=== PATIENT | female | born 1985 | race Caucasian/White ===

== ENCOUNTER 2021-02-14 16:35 | Emergency (ER) | payer OTHER, SELFPAY ==
[2021-02-14 16:45] VITALS: BP 126/85; PULSE 102; RESP 18; TEMP 36.7; O2SAT 99; BMI 20.9
[2021-02-14 17:06] LABS: Glucose Urine UA NEG (NEG); Leukocyte Esterase Urine 1+ (NEG); Nitrite Urine NEG (NEG); UACC Culture Trigger YES; Urine Blood 1+ (NEG); Urine Ketones NEG (NEG); Urine Protein TRACE MG/DL (NEG-TRACE)
[2021-02-14 17:39] LABS: Appearance Urine HAZY; Color Urine YELLOW
[2021-02-14 18:01] LABS: Bacteria Urine 2+ /LPF; Squamous Epithelial Cell Urine 1+ /LPF
[2021-02-14 19:13] VITALS: BP 126/63; PULSE 98; RESP 18; TEMP 37.4; O2SAT 98
--- NOTE | 2021-02-14 21:33 | ED.FEMALEGU ---
HPI - Female Genitourinary General Chief complaint: Urogenital-Female Stated complaint: ?uti Time Seen by Provider: 02/14/21 21:33 Source: patient Mode of arrival: ambulatory Limitations: no limitations History of Present Illness HPI Narrative: Patient's history of recurrent UTI been feeling weak tired for last 3 days today noticed difficulty in urination with cloudy urine and strong order and left flank pain went to urgent care center urine shows UTI test was negative patient denies any nausea or vomiting complaining of mild headache no fever or chills in the past patient had sepsis because of UTI and just finished antibiotics last month for UTI lately she is getting UTI almost every month for the last 4 months Related Data Previous Rx's Medication Instructions Recorded ciprofloxacin HCl [Cipro] 500 mg PO BID #14 tab 02/14/21 Allergies Allergy/AdvReac Type Severity Reaction Status Date / Time Penicillins Allergy Mild THROAT Unverified 08/02/20 15:38 SWELLS penicillin Allergy Unknown Uncoded 10/19/19 00:00 Review of Systems Review of Systems: Constitutional : No Weight loss, No Fever, No Chills ENT/Mouth : No sore throat, No Rhinorrhea Eyes: No Eye Pain, No Swelling Cardiovascular : No Chest Pain, no palpitations Respiratory : No Cough, No Sputum, no shortness of breath Gastrointestinal : no Nausea, No Vomiting, No Diarrhea, No abdominal Pain, no black stools Genitourinary : + Dysuria, + Urinary Frequency Musculoskeletal : No joint pain, No Myalgias, No Joint Swelling Skin : No Skin Lesions, No rash Neuro : + Weakness, No Numbness, No Dizziness, + Headache Psych : No Anxiety/Panic, No Depression Heme/Lymph: No Bruising, No Lymphadenopathy Endocrine : No Polyuria, No Polydipsia All other systems reviewed and are negative [facility] Past Medical History Medical History Adrenal insufficiency UTI (urinary tract infection) Surgical History Previous back surgery Social History Social History Alcohol intake: never Smoking Status: Never smoker Use of substances other than those prescribed or required for medical reasons: No Advance Directives: No Advance Directives Information Provided: No Physical Exam Vital Signs: Vital Signs: Last Vital Signs Temp 98.3 F 02/14/21 21:56 Pulse 92 02/14/21 21:56 Resp 16 02/14/21 21:56 BP 121/85 02/14/21 21:56 Pulse Ox 99 02/14/21 21:56 Body Mass Index 20.9 Appearance: Alert. Oriented X3. No acute distress. Eyes: Pupils equal, round and reactive to light. ENT: Pharynx normal. Neck: Normal inspection. Neck supple. CVS: Normal heart rate and rhythm. Pulses normal. Respiratory: No respiratory distress. Breath sounds normal. Abdomen: Soft and nontender. Bowel sounds are present, no mass palpable, L CVA tenderness ++ Skin: Skin warm and dry. Normal skin color. Normal skin turgor. Extremities: No lower extremity edema. Neuro: Oriented X 3. No motor deficit. No sensory deficit. MDM - Female Genitourinary MDM Narrative Medical decision making narrative: Patient with UTI with history of sepsis in the past will check CBC count give IV Rocephin, at this time patient does not have any finding of sepsis Differential Diagnosis Differential diagnosis: Likely urinary tract infection Medical Records Attestation: I reviewed the patient's medical records. Lab Data Attestation: I reviewed the patient's lab results. Result diagrams: 02/14/21 22:01 02/14/21 22:01 Labs: Lab Results 02/14/21 02/14/21 02/14/21 Range/Units 16:44 22:01 22:01 WBC 13.3 H (4.8-10.8) X10*3/uL RBC 3.97 L (4.20-5.50) X10*6/uL Hgb 12.0 (12.0-16.0) g/dl Hct 37.3 (37-47) % MCV 94.0 (80-98) fL MCH 30.2 (27.0-33.0) pg MCHC 32.2 (31.0-35.0) g/dl RDW 13.6 (11.0-16.0) % Plt Count 263 (160-400) X10*3/uL MPV 10.4 (9.4-12.3) fL Immature Gran % (Auto) 0.4 (0.0-0.4) % Neut % (Auto) 71.9 (45-73) % Lymph % (Auto) 19.2 L (20-40) % [place] % (Auto) 7.7 (2-11) % Eos % (Auto) 0.6 (0-4) % Baso % (Auto) 0.2 (0-2) % Lymph # (Auto) 2.6 (1.2-4.9) X10*3/uL [place] # (Auto) 1.0 (0.1-1.2) X10*3/uL Eos # (Auto) 0.1 (0.0-0.4) X10*3/uL Baso # (Auto) 0.0 (0.0-0.2) X10*3/uL Abs Immat Gran (auto) 0.05 H (0.00-0.03) X10*3/uL Absolute Neuts (auto) 9.6 H (2.0-8.3) X10*3/uL Absolute Nucleated RBC 0.000 (0.0-0.012) X10*3/uL Nucleated RBC % (auto) 0.0 (0.0-0.2) /100WBC Sodium 133 L (135-145) mmol/L Potassium 5.2 H (3.3-5.1) mmol/L Chloride 98 (96-108) mmol/L Carbon Dioxide 25 (22-29) mmol/L Anion Gap 15 (12-20) BUN 14 (9-16) mg/dL Creatinine 0.96 (0.5-1.4) mg/dL Estim Creat Clear Calc 54.7 Estimated GFR > 60 Random Glucose 115 (60-115) mg/dL Calcium 9.3 (8.4-10.2) mg/dL Urine Color YELLOW Urine Appearance HAZY Urine pH 6.0 (5.0-8.0) Ur Specific [place] 1.020 (1.005-1.025) Urine Protein TRACE (NEG-TRACE) MG/DL Urine Glucose (UA) NEG (NEG) MG/DL Urine Ketones NEG (NEG) MG/DL Urine Blood 1+ H (NEG) Urine Nitrite NEG (NEG) Ur Leukocyte Esterase 1+ H (NEG) Urine RBC 1-4 (0) /HPF Urine WBC 15-29 H (0-4) /HPF Ur Squamous Epith Cells 1+ /LPF Urine Bacteria 2+ /LPF Discharge Plan Discharge Clinical Impression: Urinary tract infection Patient Disposition: Home, Self-Care Instructions: Urinary Tract Infection in Women (ED) Additional Instructions: Drink plenty of fluids Take antibiotic as prescribed. Report to the ER/PCP if high fever/ vomiting /increased back pain Prescriptions: New ciprofloxacin HCl [Cipro] 500 mg tablet 500 mg PO BID Qty: 14 RF: 0 Interventions: ED Discharge Assessment Last Done: 02/14/21 23:36 Discharge Date/Time: 02/14/21 23:37
[2021-02-14 21:56] VITALS: BP 121/85; PULSE 92; RESP 16; TEMP 36.8; O2SAT 99
[2021-02-14 22:07] LABS: MANUAL DIFF FLAG NO
[2021-02-14] MEDS: 0.9 % Sodium Chloride 1,000 ML 999 ML IVCONT (22:10)
[2021-02-14 22:11] LABS: Basophils Percent Auto 0.2 % (0-2); Eosinophils Absolute Auto 0.1 X10*3/uL (0.0-0.4); Eosinophils Percent Auto 0.6 % (0-4); Hematocrit 37.3 % (37-47); Imm Gran Abs Auto 0.05 X10*3/uL (0.00-0.03); Imm Gran Pct Auto 0.4 % (0.0-0.4); Lymphocytes Absolute Auto 2.6 X10*3/uL (1.2-4.9); Lymphocytes Percent Auto 19.2 % (20-40); Mean Corpuscular HGB Conc 32.2 g/dl (31.0-35.0); Mean Corpuscular Hemoglobin 30.2 pg (27.0-33.0); Mean Platelet Volume 10.4 fL (9.4-12.3); Monocytes Percent Auto 7.7 % (2-11); Neutrophils Absolute Auto 9.6 X10*3/uL (2.0-8.3); Neutrophils Percent Auto 71.9 % (45-73); Platelet Count 263 X10*3/uL (160-400); Red Blood Count 3.97 X10*6/uL (4.20-5.50); Red Cell Distribution Width 13.6 % (11.0-16.0); White Blood Count 13.3 X10*3/uL (4.8-10.8)
[2021-02-14] MEDS: cefTRIAXone sodium 1 GM in 0.9 % Sodium Chloride 50 ML IV (22:11)
[2021-02-14] MEDS: Ketorolac Tromethamine 30 MG/ML VIAL IVPUSH (22:11)
[2021-02-14 22:38] LABS: Anion Gap 15 (12-20); Blood Urea Nitrogen 14 mg/dL (9-16); Calcium 9.3 mg/dL (8.4-10.2); Carbon Dioxide 25 mmol/L (22-29); Chloride 98 mmol/L (96-108); Creatinine Clr Calc Pharmacy 54.7; Estimated Glomerular Filt Rate > 60; Glucose Random 115 mg/dL (60-115); Potassium 5.2 mmol/L (3.3-5.1); Sodium 133 mmol/L (135-145)
== END 2021-02-14 23:37 | disposition home or self-care (01) ==
PROVIDERS: Emergency Provider Internal Medicine; PCP Internal Medicine
DX: N39.0 Urinary tract infection, site not specified (principal); Z87.440 Personal history of urinary (tract) infections
CPT/HCPCS: 36415; 80048; 81001; 81003; 85025; 87086; 87088; 87186; 96361; 96365; 96374; 99284; J0696; J1885

== ENCOUNTER 2023-10-21 19:27 | Emergency (ER) | payer OTHER, SELFPAY ==
--- NOTE | ~2023-10-21 | XR_ITS ---
EXAMINATION: XR CHEST CLINICAL INFORMATION: Rib pain. COMPARISON: None available. TECHNIQUE: 2 views of the chest were obtained. FINDINGS: No significant abnormality is noted involving the heart, lungs, mediastinum, bony thorax or soft tissues. XR/XR chest 2V IMPRESSION: Unremarkable chest examination.
[2023-10-21 21:05] VITALS: BP 124/70; PULSE 88; RESP 20; TEMP 37; O2SAT 96; BMI 24.8
[2023-10-21 21:28] LABS: Hematocrit 33.3 % (37.0-47.0); Hemoglobin 11.3 g/dl (12.0-16.0); Mean Corpuscular HGB Conc 33.9 g/dl (31.0-35.0); Mean Corpuscular Hemoglobin 31.7 pg (27.0-33.0); Mean Corpuscular Volume 93.5 fL (80.0-98.0); Platelet Count 128 X10*3/uL (160-400); Red Blood Count 3.56 X10*6/uL (4.20-5.50); Red Cell Distribution Width 11.8 % (11.0-16.0); White Blood Count 10.3 X10*3/uL (4.8-10.8)
[2023-10-21 21:32] LABS: Appearance Urine Clear; Color Urine Yellow; Glucose Urine UA Negative (Negative); Leukocyte Esterase Urine Trace (Negative); Nitrite Urine Negative (Negative); PH 6.5 (5.0-9.0); UMIC TRIGGER UACC YES; Urine Blood Trace (Negative); Urine Ketones Negative (Negative); Urine Protein Negative (Neg-Trace)
[2023-10-21 21:39] LABS: Alanine Aminotransferase 17 U/L (0-31); Albumin Level 3.7 g/dL (3.5-5.0); Alkaline Phosphatase 72 U/L (39-117); Anion Gap 12 (12-20); Aspartate Amino Transferase 21 U/L (5-31); Bilirubin Total 0.2 mg/dL (0.0-1.0); Blood Urea Nitrogen 7 mg/dL (9-16); Calcium 9.1 mg/dL (8.4-10.2); Carbon Dioxide 22 mmol/L (22-29); Chloride 101 mmol/L (96-108); Creatinine Clr Calc Pharmacy 75.6; Estimated Glomerular Filt Rate > 60; Glucose Random 101 mg/dL (60-115); Potassium 3.7 mmol/L (3.3-5.1); Sodium 131 mmol/L (135-145); Total Protein 6.9 g/dL (6.5-8.0)
[2023-10-21 22:00] LABS: IDNOW Serial# 08D9AD1C; Strep A Nucleic Acid Negative (Negative)
[2023-10-21 22:02] LABS: Influenza A PCR POSITIVE (Negative); Influenza B PCR NEGATIVE (Negative); Resp Syncy Virus RNA Qual PCR NEGATIVE (Negative); SARS COV2 PCR INHOUSE NEGATIVE (Negative)
[2023-10-21 22:21] LABS: Bacteria Urine None Seen (None Seen); Hyaline Casts Urine 0-2 /LPF (0-2); WBC Urine 0-5 /HPF (0-5)
--- NOTE | 2023-10-22 01:00 | ED_ITS ---
HPI - General Adult General Chief complaint: General Medical Stated complaint: sore throat,headache Time Seen by Provider: 10/22/23 00:54 Source: patient Mode of arrival: ambulatory Limitations: no limitations History of Present Illness HPI narrative: Patient comes to the emergency room complaining of 2-3 days of sore throat, body aches, generalized malaise. Patient denies coughing, no abdominal pain, no vomiting or diarrhea. Patient states that she has mild abdominal cramping and foul-smelling urine. No significant dysuria or hematuria . Related Data Previous Rx's Medication Instructions Recorded ciprofloxacin HCl 500 mg tablet 500 mg PO BID #14 tabs 02/14/21 (Cipro) nitrofurantoin 100 mg PO Q12H 7 days #14 caps 10/22/23 monohydrate/macrocrystals 100 mg capsule (Macrobid) oseltamivir 75 mg capsule (Tamiflu) 75 mg PO BID 5 days #10 caps 10/22/23 Allergies Allergy/AdvReac Type Severity Reaction Status Date / Time Penicillins Allergy Mild THROAT Unverified 08/02/20 15:38 SWELLS penicillin Allergy Unknown Uncoded 10/19/19 00:00 Review of Systems 2 Review of Systems: Constitutional : No Weight loss, No Fever, No Chills, No Night Sweats, No Fatigue, No Malaise ENT/Mouth : No Hearing loss, No Ear Pain, No Nasal Congestion, No Sinus Pain, No Hoarseness, complaining of sore throat, No Rhinorrhea, No Swallowing Difficulty Eyes: No Eye Pain, No Swelling, No Redness, No Foreign Body, No Discharge, No Vision Changes Cardiovascular : No Chest Pain, No SOB, No Dyspnea on Exertion, No Orthopnea, No Edema, No Palpitations Respiratory : No Cough, No Sputum, No Wheezing, No Smoke Exposure, No Dyspnea Gastrointestinal : No Nausea, No Vomiting, No Diarrhea, No Constipation, No abdominal Pain, No Hematochezia, No Melena Genitourinary : no irregular bleeding, mild Dysuria, No Urinary Frequency, No Hematuria, No Urinary Incontinence, No Urgency, No Flank Pain, No Urinary Flow Changes, No Hesitancy Musculoskeletal : No joint pain, No Myalgias, No Joint Swelling Skin : No Skin Lesions, No rash Neuro : No Weakness, No Numbness, No Paresthesias, No Loss of Consciousness, No Dizziness, No Headache Psych : No Anxiety/Panic, No Depression, No SI/HI/AH/VH, No Social Issues, Heme/Lymph: No Bruising, No Bleeding,No Lymphadenopathy Endocrine : No Polyuria, No Polydipsia, No Temperature Intolerance [facility] Past Medical History Medical History Adrenal insufficiency UTI (urinary tract infection) Surgical History Previous back surgery Social History Social History Alcohol intake: never Physical Exam ED Vital Signs: Vital Signs - 24 hr 10/21/23 21:05 Temperature 98.6 F Pulse Rate 88 Respiratory Rate 20 Blood Pressure 124/70 Pulse Oximetry 96 Oxygen Delivery Method Room Air BMI result Body Mass Index 24.8 Const Other: Appearance: Alert. Oriented X3. No acute distress. Eyes: Pupils equal, round and reactive to light. ENT: Pharynx erythematous, no exudates, no abscess is visualized, normal tongue Neck: Normal inspection. Neck supple. No lymph nodes noted. No crepitus CVS: Normal heart rate and rhythm. Pulses normal. Normal S1 and S2 Respiratory: No respiratory distress. Breath sounds normal. No Wheezing. No rales Abdomen: Soft and nontender. No rigidity. No distention. No flank pain Skin: Skin warm and dry. Normal skin color. Normal skin turgor. Extremities: No lower extremity edema. No Lacerations. No Rash Neuro: Oriented X 3. No motor deficit. No sensory deficit. Moving all extremities. No slurred speech. CN 2 through 12 grossly intact Psych: calm, cooperative, normal affect Medical Decision Making Medical Decision Making [facility] Narrative: -I discussed the labs with the patient. Patient tested positive for influenza. I discussed with the patient treating symptomatically versus with Tamiflu since she is in the window of treatment. Patient would like to take Tamiflu. Also, patient's urinalysis was borderline positive for UTI. Given her symptoms and previous microbiology analysis of the urinalysis of February of 2021, we will go ahead and treat as a UTI. Differential Diagnosis Differential Diagnoses: The differential diagnosis associated with the presentation includes (Influenza, RSV, COVID, strep, UTI) Lab Data [facility] Lab Attestation statement: I reviewed the patient's lab results. 10/21/23 21:17 10/21/23 21:17 Labs: Lab Results 10/21/23 Range/Units 21:17 WBC 10.3 (4.8-10.8) X10*3/uL RBC 3.56 L (4.20-5.50) X10*6/uL Hgb 11.3 L (12.0-16.0) g/dl Hct 33.3 L (37.0-47.0) % MCV 93.5 (80.0-98.0) fL MCH 31.7 (27.0-33.0) pg MCHC 33.9 (31.0-35.0) g/dl RDW 11.8 (11.0-16.0) % Plt Count 128 L (160-400) X10*3/uL MPV 12.0 (9.4-12.3) fL Absolute Nucleated RBC 0.000 (0.0-0.012) X10*3/uL Nucleated RBC % (auto) 0.0 (0.0-0.2) /100WBC Sodium 131 L (135-145) mmol/L Potassium 3.7 D (3.3-5.1) mmol/L Chloride 101 (96-108) mmol/L Carbon Dioxide 22 (22-29) mmol/L Anion Gap 12 (12-20) BUN 7 L (9-16) mg/dL Creatinine 0.76 (0.5-1.4) mg/dL Estim Creat Clear Calc 75.6 Estimated GFR > 60 Random Glucose 101 (60-115) mg/dL Calcium 9.1 (8.4-10.2) mg/dL Total Bilirubin 0.2 (0.0-1.0) mg/dL AST 21 (5-31) U/L ALT 17 (0-31) U/L Alkaline Phosphatase 72 (39-117) U/L Total Protein 6.9 (6.5-8.0) g/dL Albumin 3.7 (3.5-5.0) g/dL Urine Color Yellow Urine Appearance Clear Urine pH 6.5 (5.0-9.0) Ur Specific [place] 1.010 (1.005-1.025) Urine Protein Negative (Neg-Trace) mg/dL Urine Glucose (UA) Negative (Negative) mg/dL Urine Ketones Negative (Negative) mg/dL Urine Blood Trace H (Negative) Urine Nitrite Negative (Negative) Ur Leukocyte Esterase Trace H (Negative) Urine RBC 3-5 H (0-2) /HPF Urine WBC 0-5 (0-5) /HPF Ur Squamous Epith Cells 3-5 (0-2) /HPF Urine Bacteria None Seen (None Seen) Hyaline Casts 0-2 (0-2) /LPF Influenza Type A (PCR) POSITIVE A (Negative) Influenza Type B (PCR) NEGATIVE (Negative) RSV RNA Qual (PCR) NEGATIVE (Negative) SARS-CoV-2 RNA (RT-PCR) NEGATIVE (Negative) S. pyogenes GrpA MARK Negative (Negative) Independent Interpretation I performed an independent interpretation of an: Plain X-Ray (My interpretation of chest x-ray: No infiltrate) Radiology Impression Discussion of test interpretation with radiology: I have reviewed the radiologist's reading. Radiologist Impression: No significant abnormality is noted involving the heart, lungs, mediastinum, bony thorax or soft tissues. XR/XR chest 2V IMPRESSION: Unremarkable chest examination. Discharge Plan Discharge Clinical Impression: Influenza, UTI (urinary tract infection) Patient Disposition: Home, Self-Care Instructions: Urinary Tract Infection in Women (ED), Influenza (ED) Additional Instructions: Please follow-up with your primary care physician tomorrow. If you have any worsening or new symptoms, please return to the emergency room or call 911 Prescriptions: New nitrofurantoin monohyd/m-cryst [Macrobid] 100 mg capsule 100 mg PO Q12H 7 Days Qty: 14 0RF Rx Instructions: must administer with a meal/food oseltamivir [Tamiflu] 75 mg capsule 75 mg PO BID 5 Days Qty: 10 0RF No Action ciprofloxacin HCl [Cipro] 500 mg tablet 500 mg PO BID Qty: 14 0RF Stand Alone Forms: Work/School Release
--- NOTE | 2023-10-22 01:51 | PC.NURSE ---
This RN took over care at 1:45am, pt discharged by Karri Jeronimo.
== END 2023-10-22 01:52 | disposition home or self-care (01) ==
PROVIDERS: Emergency Provider Emergency Medicine; PCP Internal Medicine
DX: J10.1 Influenza due to other identified influenza virus with other respiratory manifestations (principal); N39.0 Urinary tract infection, site not specified; Z11.52 Encounter for screening for COVID-19
CPT/HCPCS: 0241U; 71046; 80053; 81001; 85027; 87651; 99283; 99284

== ENCOUNTER 2024-02-14 11:08 | Emergency (ER) | payer OTHER, SELFPAY ==
[2024-02-14 11:14] VITALS: BP 143/112; PULSE 105; RESP 18; TEMP 36.9; O2SAT 100; BMI 24.4
--- NOTE | 2024-02-14 11:14 | ED.GENADULT ---
HPI - General Adult General Chief complaint: General Medical Stated complaint: test - vomiting Time Seen by Provider: 02/14/24 11:20 Source: patient Mode of arrival: ambulatory Limitations: no limitations History of Present Illness HPI narrative: 39 yo female (history of in early 20s), adrenal insufficiency (not on meds), active heroin user 1 bundle per day who presents to the ER for evaluation of a positive test. She states she has a history of irregular menstrual cycles. She thinks her last menstrual cycle was about 8 months ago. It has been irregular prior to that. She has been vomiting for a few months now. She noticed that her abdomen girth has increased in size over the last couple of weeks. She noticed lower extremity swelling the last 2 days. She is here for ?confirmation of the . ? Patient denies any abdominal cramping or contraction like sensations. She denies any vaginal bleeding or leaking fluid. No headache or dizziness. MD complaint: Onset (ago): unknown Location: abdomen, left, right and lower extremity Related Data Previous Rx's Medication Instructions Recorded ciprofloxacin HCl 500 mg tablet 500 mg PO BID #14 tabs 02/14/21 (Cipro) nitrofurantoin 100 mg PO Q12H 7 days #14 caps 10/22/23 monohydrate/macrocrystals 100 mg capsule (Macrobid) oseltamivir 75 mg capsule (Tamiflu) 75 mg PO BID 5 days #10 caps 10/22/23 Allergies Allergy/AdvReac Type Severity Reaction Status Date / Time Penicillins Allergy Mild THROAT Verified 02/14/24 11:14 [facility] Past Medical History Medical History Adrenal insufficiency UTI (urinary tract infection) Surgical History Previous back surgery Social History Social History Alcohol intake: never Smoked in Last 30 Days: Yes Use of substances other than those prescribed or required for medical reasons: Yes Substance Use Type: Heroin Advance Directives: No Advance Directives Information Provided: No Patient : Yes Physical Exam ED Vital Signs: Vital Signs - 24 hr 02/14/24 11:14 02/14/24 11:24 Temperature 98.5 F Pulse Rate 105 H 101 H Respiratory Rate 18 18 Blood Pressure 143/112 H 152/103 H Pulse Oximetry 100 100 Oxygen Delivery Method Room Air Room Air BMI result Body Mass Index 24.4 Appearance: Alert. Oriented X3. No acute distress. Head: normocephalic, atraumatic. Eyes: Pupils equal, round and reactive to light. ENT: Pharynx normal. No tonsillar swelling or exudate. Neck: Normal inspection. Neck supple. CVS: Normal heart rate and rhythm. Pulses normal. Respiratory: No respiratory distress. Breath sounds normal. Abdomen: Rotund, gravid uterus palpable between the umbilicus and xiphoid. palpated vertex positioning. active +BS x4 Skin: Skin warm and dry. Normal skin color. Normal skin turgor. No rashes. Extremities: 1+ lower extremity edema at the ankle and lower leg. No joint swelling. no track hyatt Neuro/psych: Oriented X 3. No motor deficit. No sensory deficit. CN II-XII intact. Normal speech and cognition. Course Course Course Narrative: This is an RME: Additional HPI, ROS, PE not included below will be deferred to primary provider. Reports home test positive, wants confirmation. unaware of date of last , believes about 8 months ago, prior to that was getting them once ever few months. States over the past few months she has been vomiting, over the past few weeks she noticed her stomach was getting larger. Bilateral LE swelling over the past few days. Procedures EJ/Peripheral Line Arm L: Time Out Performed: No Skin Cleansed in Sterile Fashion: Yes Size (gauge): 20 IV Secured and Dressing Applied: Yes Patient Tolerated Procedure: well and no complications Medical Decision Making Medical Decision Making MDM Narrative: 39-year-old with unknown LMP, active drug use who presents to the ER for evaluation of a positive test at home, lower extremity swelling, abdominal distention, vomiting. On examination patient is . She has a gravid uterus palpable between her umbilicus and xiphoid process. She has been actively using drugs and smoking cigarettes. She is hypertensive on arrival 143/112. No vision changes or headache. heart tones 140s. Bedside ultrasound revealed a vertex presentation of a fetus, spontaneously moving. Patient is high-risk and will need to be transferred to [facility] for further monitoring Spoke w/ Dr. Cano who accepts under [facility]. [facility] Differential Diagnosis Differential Diagnoses: The differential diagnosis associated with the presentation includes High-risk , unclear gestational age, preeclampsia, hypertension in , SGA Admission/Observation Consideration of admission/observation: Escalation of care including admission/observation considered Consult Healthcare Provider Management of the patient was discussed with: Skin Lap Bonder Dr. Cano resident at [facility] accepts to [facility] Lab Data [facility] Lab Attestation statement: I reviewed the patient's lab results. Labs: Lab Results 02/14/24 Range/Units 11:47 Urine Color Dark Yellow Urine Appearance Clear Urine pH 6.5 (5.0-9.0) Ur Specific [place] 1.020 (1.005-1.025) Urine Protein 30 (1+) H (Neg-Trace) mg/dL Urine Glucose (UA) Negative (Negative) mg/dL Urine Ketones Trace (Negative) mg/dL Urine Blood Negative (Negative) Urine Nitrite Negative (Negative) Ur Leukocyte Esterase Moderate (2+) H (Negative) Urine RBC 0-2 (0-2) /HPF Urine WBC 6-10 H (0-5) /HPF Ur Squamous Epith Cells 6-10 (0-2) /HPF Urine Bacteria None Seen (None Seen) Hyaline Casts 3-5 (0-2) /LPF Urine Test POSITIVE H (NEGATIVE) Independent Historian Clinical information obtained from an independent historian. History obtained from or confirmed by: Parent External Record Review External record reviewed: Outpatient record and Prior outpatient labs Prescription Management I considered prescription management with: Other (antihypertensive ) Chronic Conditions Patient?s care impacted by: Other (adrenal insufficiency ) Critical Care Time Critical Care Time Critical Care Time: Yes Total Critical Care Time: 39 Attestation: I have personally provided critical care time exclusive of time spent on separately billable procedures. Time includes review of lab data, radiology results, discussion with consultants, and monitoring for potential decompensation. Intervention performed as documented. Discharge Plan Discharge Clinical Impression: High risk due to maternal drug abuse Qualifiers: Trimester: unspecified trimester Qualified Code(s): O99.320 - Drug use complicating , unspecified trimester Hypertension Qualifiers: Hypertension type: unspecified Qualified Code(s): I10 - Essential (primary) hypertension Patient Disposition: [facility] Transfer Details: [facility] Prescriptions: No Action ciprofloxacin HCl [Cipro] 500 mg tablet 500 mg PO BID Qty: 14 0RF nitrofurantoin monohyd/m-cryst [Macrobid] 100 mg capsule 100 mg PO Q12H 7 Days Qty: 14 0RF Rx Instructions: must administer with a meal/food oseltamivir [Tamiflu] 75 mg capsule 75 mg PO BID 5 Days Qty: 10 0RF
[2024-02-14 11:24] VITALS: BP 152/103; PULSE 101; RESP 18; O2SAT 100
--- NOTE | 2024-02-14 11:28 | PC.NURSE ---
F[facility] 144
[2024-02-14 11:55] LABS: Appearance Urine Clear; Color Urine Dark Yellow; Glucose Urine UA Negative (Negative); Leukocyte Esterase Urine Moderate (2+) (Negative); Nitrite Urine Negative (Negative); PH 6.5 (5.0-9.0); UMIC TRIGGER UACC YES; Urine Blood Negative (Negative); Urine Ketones Trace mg/dL (Negative); Urine Protein 30 (1+) mg/dL (Neg-Trace)
[2024-02-14 11:57] LABS: Bacteria Urine None Seen (None Seen); RBC Urine 0-2 /HPF (0-2); UACC Culture Trigger YES; UPreg QC Valid YES; Urine Pregnancy POSITIVE (NEGATIVE)
[2024-02-14 12:42] VITALS: BP 152/103; PULSE 101; RESP 18; TEMP 36.9; O2SAT 100
== END 2024-02-14 12:43 | disposition short-term general hospital (02) ==
PROVIDERS: Physician Assistant; Emergency Provider Student in an Organized Health Care Education/Training Program; PCP Internal Medicine
DX: O99.320 Drug use complicating pregnancy, unspecified trimester (principal); F11.10 Opioid abuse, uncomplicated; O16.9 Unspecified maternal hypertension, unspecified trimester; O09.519 Supervision of elderly primigravida, unspecified trimester; O99.330 Smoking (tobacco) complicating pregnancy, unspecified trimester; F17.210 Nicotine dependence, cigarettes, uncomplicated; Z3A.00 Weeks of gestation of pregnancy not specified
CPT/HCPCS: 36410; 81001; 81025; 87086; 99285

== ENCOUNTER 2024-10-03 14:54 | Outpatient (AMB) | payer OTHER, SELFPAY ==
--- NOTE | 2024-10-03 15:10 | AM.OFFWIN_ITS ---
Intake Vital Signs 3 10/03/24 15:15 Weight 112 lb BP 120/90 H Blood Pressure Location Rt brachial Position Sitting Pulse 85 Pulse Source Pulse Oximeter Pulse Oximetry (%) 98 Oxygen Delivery Method Room Air Intake Visit Reasons: [employer] pain in the mouth Intake Note: Patient here for right sided mouth pain and swelling that started yesterday. Allergies Penicillins Allergy (Mild, Verified 10/03/24 15:15) THROAT SWELLS Do you need a note to return to daycare/school/sports/work: No HPI HPI Comments 2 History of Present Illness0 Details Patient is a 39-year-old female complaining of right upper tooth pain and gum pain and right-sided cheek swelling that started this morning. She tells me she has been using warm salt water rinses and ice for pain. She tells me she does not have dental insurance and does not see a dentist currently. Patient requesting prescription for Motrin PFSH Medical History Adrenal insufficiency UTI (urinary tract infection) Surgical History Previous back surgery Social History Alcohol intake: never Substance Use Type: Heroin Review of Systems Const All systems reviewed & are unremarkable except as noted in HPI and below Physical Exam Vital Signs: Last Vital Signs Pulse 85 10/03/24 15:15 BP 120/90 H 10/03/24 15:15 Pulse Ox 98 10/03/24 15:15 Oxygen Delivery Method Room Air 10/03/24 15:15 Const General: cooperative, healthy appearing, comfortable and no acute distress Orientation/consciousness: patient oriented x3 Limitations: no limitations HEENT Head: Yes normal to inspection Ears: hearing grossly normal bilaterally General nose exam: Normal external nose present Face and sinus: Yes edema (Slight right-sided cheek swelling) Mouth: lip normal, tongue normal and moist mucous membranes Teeth and gingiva: caries, fair dentition and poor dentition Teeth image: 2 1. Tenderness to palpation, erythema and slightly fluctuant, no drainage noted Throat: Yes tonsils normal and Yes uvula midline Eyes General: appearance normal, both eyes and all related structures Neck Neck: Yes normal visual inspection, Yes full ROM and Yes no lymphadenopathy Resp Effort & Inspection: normal respiratory effort and able to speak in complete sentences Skin General skin exam: no rashes or lesions noted Neuro General: patient oriented x3 Assessment & Plan Assessment & Plan (1) Dental abscess: Code(s): K04.7 - Periapical abscess without sinus Plan: As patient has a penicillin allergy, sent clindamycin and ibuprofen. Recommended she follow up with a dentist gave her a few names of free clinics that are local. Plan See above Medications: New 2 clindamycin HCl 450 mg (3 x 150 mg) PO Q8H 7 days 63 caps 0RF ibuprofen 600 mg PO Q8H PRN 30 tabs 0RF pain Discontinued 2 ciprofloxacin HCl (Cipro) Discontinued Reason: Patient Completed Course 500 mg PO BID 14 tabs 0RF nitrofurantoin monohyd/m-cryst 100 mg (Macrobid) must administer with a meal/food Discontinued Reason: Patient Completed Course 100 mg PO Q12H 7 days 14 caps 0RF oseltamivir (Tamiflu) Discontinued Reason: Patient Completed Course 75 mg PO BID 5 days 10 caps 0RF Coding Level of Care Code New Pt Level 3 (03558) Diagnoses Dental abscess K04.7
[2024-10-03 15:15] VITALS: BP 120/90; PULSE 85; O2SAT 98
== END 2024-10-03 16:25 | disposition home or self-care (01) ==
PROVIDERS: PCP Internal Medicine; Visit Provider Physician Assistant
DX: K04.7 Periapical abscess without sinus (principal)

== ENCOUNTER → 2024-10-03 14:54 | Outpatient (BNVA) | payer OTHER, SELFPAY | PROVIDERS: PCP Internal Medicine; Visit Provider Physician Assistant | DX: K04.7 Periapical abscess without sinus (principal) | CPT/HCPCS: 99202 ==

== ENCOUNTER 2025-07-05 14:26 | Outpatient (AMB) | payer OTHER, SELFPAY ==
--- NOTE | 2025-07-05 15:14 | AM.OFFWIN_ITS ---
Intake Vital Signs 07/05/25 15:20 Height 4 ft 11 in Weight 99 lb BMI 20.0 BP 106/80 Blood Pressure Location Rt brachial Position Sitting Pulse 99 Pulse Source Pulse Oximeter Temp 98.2 F Temp Source Oral Pulse Oximetry (%) 100 Oxygen Delivery Method Room Air Intake Visit Reasons: ep uti pelvic pain when urinating Intake Note: pt presents with concern for a UTI, c/o pelvic pain when urinating Allergies Penicillins Allergy (Mild, Verified 07/05/25 15:24) THROAT SWELLS Do you need a note to return to daycare/school/sports/work: No HPI HPI Comments History of Present Illness Details She presents to office with concern urine infection Onset 3 days ago +cloudy urine; no hematuria +pressure with urination + frequency and urgency + back ache associated and headache Tylenol without relief + 100.5 fever with associated chills Not nursing No vaginal bleeding or discaharge No other complaints PFSH Medical History (Updated 07/05/25 @ 15:40 by Lela Leos PA-C) Adrenal insufficiency UTI (urinary tract infection) Surgical History Previous back surgery Social History Alcohol intake: never Substance Use Type: Heroin Review of Systems Const Denies chills, Denies fatigue and Denies fever(s) Card Denies chest pain and Denies dyspnea Resp Denies dyspnea GI Reports abdominal pain Denies hematuria, Reports difficulty voiding, Reports dysuria, Denies urinary incontinence, Reports urinary hesitancy, Reports urinary urgency and Denies vaginal discharge Musc Reports back pain and Denies myalgias Skin/Breast Denies rash and Denies skin pain Endo Denies fatigue Physical Exam Exam Exam: General: Non-toxic, NAD. Speaking full sentences. Skin: Warm dry throughout. No back vesicular lesions Eye: EOMI Respiratory: CTA bilaterally. No wheezes, rales or rhonchi Cardiac: RRR. No murmur Abdominal: BS present x 4. No rebound or guarding. No CVAT. MSK: Full ROM extremities. Neurology: Alert. No aphasia or facial droop. Gait without abnormality Psych: Good mood and affect Vital Signs: Last Vital Signs Temp 98.2 F 07/05/25 15:20 Pulse 99 07/05/25 15:20 BP 106/80 07/05/25 15:20 Pulse Ox 100 07/05/25 15:20 Oxygen Delivery Method Room Air 07/05/25 15:20 BMI result Body Mass Index 20.0 Results AMB Urinalysis, Automated UA Leukoctes 500 Keri/uL Last Edit by Rodriguez Topete CMA on 07/05/25 15:4 2 UA Nitrite Positive Last Edit by Rodriguez Topete CMA on 07/05/25 15:42 UA Urobilinogen 0.2 mg/dL Last Edit by Rodriguez Topete CMA on 07/05/25 15 :42 UA Protein 30 mg/dL Last Edit by Rodriguez Topete CMA on 07/05/25 15:42 UA pH 6.0 Last Edit by Rodriguez Topete CMA on 07/05/25 15:42 UA Blood 25 Ramana/uL Last Edit by Rodriguez Topete CMA on 07/05/25 15:42 UA Specific Osgood 1.015 Last Edit by Rodriguez Topete CMA on 07/05/25 15:42 UA Ketone Negative Last Edit by Rodriguez Topete CMA on 07/05/25 15:42 UA Bilirubin 0 mg/dL Last Edit by Rodriguez Topete CMA on 07/05/25 15:42 UA Glucose 0 mg/dL Last Edit by Rodriguez Topete CMA on 07/05/25 15:42 AMB Test Urine AMB Test Urine Negative Last Edit by Rodriguez Topete CMA on 07/05/25 15:42 Assessment & Plan Assessment & Plan (1) UTI (urinary tract infection): Code(s): N39.0 - Urinary tract infection, site not specified Qualifiers: Urinary tract infection type: acute cystitis Hematuria presence: without hematuria Qualified Code(s): N30.00 - Acute cystitis without hematuria Plan: U/A; +leuks and nitrates HCG negative Urine clture sent Macrobid to pharmacy We will call with urine results Pt gave verbal understanding and has no additional questions at time of discharge Orders: Orders Urine Culture Today N39.0 - Urinary tract infection, site not specified AMB Urinalysis Automated Today Z13.9 - Encounter for screening, unspecified AMB HCG Urine Test Today Z13.9 - Encounter for screening, unspecified Medications: New 2 nitrofurantoin monohyd/m-cryst 100 mg (Macrobid) must administer with a meal/food 100 mg PO BID 14 caps 0RF Coding Level of Care Code Est Pt Level 3 (39581) Diagnoses Acute cystitis without hematuria N30.00 Urinary tract infection type: acute cystitis Hematuria presence: without hematuria
[2025-07-05 15:20] VITALS: BP 106/80; PULSE 99; TEMP 36.8; O2SAT 100
--- OUTSIDE RECORDS SUMMARY | 2025-07-05 15:24 | XMS_ITS | Clinical Summary ---
Author Organization [employer] Address [address] [place] [address] Care Team Providers Care Program Specialist Name Role Phone Unavailable Primary Care Provider Unavailabl e Social History Tobacco Use Types Packs/Day Years Used Date Smoking Tobacco: Never Assessed Comments Unknown Sex and Gender Information Value Date Recorded Sex Assigned at Female 04/22/2024 12:35 PM EDT Legal Sex Female 11:13 AM EDT Gender Identity Choose not to disclose 12:35 PM EDT Sexual Orientation Choose not to disclose 2023 12:36 PM EDT Plan of Treatment Health Maintenance Due Date Last Done Comments Depression Screening 1984 HIV Screening 1984 SDOH Screening 1984 Disability Screening 1984 Alcohol/Substance Use Screening 1996 Tobacco Screening 1996 Family Planning (PISQ) 1999 HPV Vaccines (1 - 3-dose series) 1999 Hepatitis C Screening 2002 DTaP/Tdap/Td Vaccines (1 - Tdap) 2003 Hepatitis B Vaccines (1 of 3 - 19+ 3-dose series) 2003 Pap Smear 2005 Cervical Cancer Screening 2014 HPV/Cotest 2014 Mammogram 2024 COVID-19 Vaccine ( - 2023-2 5 season) 2024 Influenza Vaccine (#1) 2025 Zoster Vaccines (1 of 2) 2034 RSV Patients and Pa tients Aged 60 years or older (1 - 1-dose 75+ series) 2059 HIB Vaccines Aged Out No longer eligi ble based on patient's age to complete this topic Hepatitis A Vaccines Aged Out No long er eligible based on patient's age to complete this topic IPV Vaccines Aged Out No longer eligi ble based on patient's age to complete this topic Meningococcal B Vaccine Aged Out No l onger eligible based on patient's age to complete this topic Meningococcal Vaccine Aged Out No cedric eunice eligible based on patient's age to complete this topic Pneumococcal Vaccine: Pediat rics (0 to 5 Years) and At-Risk Patients (6 to 49) Years Aged Out No longer eligible b ased on patient's age to complete this topic RSV under 20 months Aged Out No longe r eligible based on patient's age to complete this topic Rotavirus Vaccines Aged Out No longer eligible based on patient's age to complete this topic Insurance [facility] C[facility]
--- OUTSIDE RECORDS SUMMARY | 2025-07-05 15:24 | XMS_ITS | Patient Health Record ---
Author Organization [facility] Address [address] [place] [id number] Care Team Providers Care Cash Applications Coordinator Name Role Phone Garcia Mynor Unavailable [phone] Reason For Referral No Information Plan Of Treatment No Information
== END 2025-07-05 15:48 | disposition home or self-care (01) ==
PROVIDERS: PCP Internal Medicine; Visit Provider Physician Assistant
DX: N30.00 Acute cystitis without hematuria (principal); Z13.9 Encounter for screening, unspecified

== ENCOUNTER 2025-07-05 14:26 | Outpatient (REF) | payer OTHER, SELFPAY ==
--- OUTSIDE RECORDS SUMMARY | 2025-07-06 12:21 | XMS_ITS | Patient Health Record ---
Author Organization [facility] Address [address] [place] [id number] Care Team Providers Care Acid Tank Cleaner Name Role Phone GarciaMynor Unavailable [phone] Reason For Referral No Information Plan Of Treatment No Information
--- OUTSIDE RECORDS SUMMARY | 2025-07-06 12:21 | XMS_ITS | Clinical Summary ---
Author Organization [employer] Address [address] [place] [address] Care Team Providers Care Psychiatric Aide Name Role Phone Unavailable Primary Care Provider [...] patient's age to complete this topic Insurance [facility] C3
== END 2025-07-05 14:27 | disposition home or self-care (01) ==
LOC: HO.LNP 14:26
PROVIDERS: PCP Internal Medicine; Visit Provider Physician Assistant
DX: N30.00 Acute cystitis without hematuria (principal); Z13.89 Encounter for screening for other disorder
CPT/HCPCS: 81003; 81025; 87086; 87088; 87186; 99212

== ENCOUNTER 2025-11-06 13:49 | Outpatient (AMB) | payer OTHER, SELFPAY ==
[2025-11-06 14:26] VITALS: BP 106/60; PULSE 80; TEMP 36.7; O2SAT 100; BMI 18.2
--- NOTE | 2025-11-06 14:26 | AM.OFFWIN_ITS ---
Intake Vital Signs 11/06/25 14:26 Height 4 ft 11 in Weight 90 lb BMI 18.2 BP 106/60 Blood Pressure Location Lt brachial Position Sitting Pulse 80 Pulse Source Pulse Oximeter Temp 98.0 F Temp Source Oral Pulse Oximetry (%) 100 Oxygen Delivery Method Room Air Intake Visit Reasons: EP infection in mouth? Intake Note: Patient presents c/o cracked tooth, pain, infection on right lower jaw x2 days. Patient Tobacco Use Status: Current everyday Tobacco user Allergies Penicillins Allergy (Mild, Verified 11/06/25 14:28) THROAT SWELLS HPI HPI Comments History of Present Illness Details History of Present Illness - The patient is a 40 year old female pr esenting with severe tooth pain. - She reports that her tooth cracked and the pain began yesterday. - She has pain along the bottom teeth an d her gums are swollen. - She denies any associated fevers or ch ills. - The patient has been using salt water gargles for symptomatic relief. - She reports an allergy to Augmentin. - She has a history of smoking but is no t currently a smoker. - She does not have a dentist. - She denies facial pain, jaw pain, EASON, ear pain, sore throat, cough, abd pain, n/v/d. Physical Exam General: Cooperative, healthy appearing, comfortable, no acute distress and well developed Head: Normal to inspection Face and sinus: No facial swelling noted. Mouth/Throat: No halitosis noted. Tongue is normal and midline. Uvula is midline. Oropharynx is pink with no exudates noted. Tonsils not swollen. Dental caries noted on the right lower teeth. Gingiva is pink and swollen. No discharge noted. Neck: Normal visual inspection and full ROM. No lymphadenopathy noted. Respiratory: Normal respiratory effort and able to speak in complete sentences. Clear to auscultation bilaterally. No w/r/r noted. Cardiovascular: Regular rate and rhythm. Normal S1 and S2. No m/r/g noted. Skin: No rashes or lesions noted [facility] Medical History (Updated 07/05/25 @ 15:40 by Lela Leos PA-C) Adrenal insufficiency UTI (urinary tract infection) Surgical History Previous back surgery Social History Alcohol intake: never Patient Tobacco Use Status: Current everyday Tobacco user Substance Use Type: Heroin Review of Systems Const All systems reviewed & are unremarkable except as noted in HPI and below Physical Exam Vital Signs: Last Vital Signs Temp 98.0 F 11/06/25 14:26 Pulse 80 11/06/25 14:26 BP 106/60 11/06/25 14:26 Pulse Ox 100 11/06/25 14:26 Oxygen Delivery Method Room Air 11/06/25 14:26 BMI result Body Mass Index 18.2 Assessment & Plan Assessment & Plan (1) Dental abscess: Code(s): K04.7 - Periapical abscess without sinus Plan Most likely dental abscess plan - tylenol or motrin as needed for pain or fever - diet as tolerated - will give her clindamycin as she has an allergy to PCN - rinse mouth after smoking and eating - salt water gargles - gave her a list of dental offices to call for an appt - follow up with PCP Medications: New clindamycin HCl 300 mg (2 x 150 mg) PO Q8H 42 caps 0RF 7 days Coding Level of Care Code Est Pt Level 3 (73297) Diagnoses Dental abscess K04.7
--- OUTSIDE RECORDS SUMMARY | 2025-11-06 17:15 | XMS_ITS | Clinical Summary ---
Author Organization [employer] Address [address] [place] [address] Care Team Providers Care Diesel Locomotive Crane Operator Name Role Phone Unavailable Primary Care Provider [...] 2014 HPV/Cotest 2014 Mammogram 2024 COVID-19 Vaccine (1 - 2024-2 6 season) 2025 Influenza Vaccine (#1) 2025 Zoster Vaccines (1 [...] patient's age to complete this topic Insurance [facility] C3
--- OUTSIDE RECORDS SUMMARY | 2025-11-06 17:16 | XMS_ITS | Patient Health Record ---
Author Organization [facility] Address [address] [place] [id number] Care Team Providers Care Spool Fixer Name Role Phone GarciaMynor Unavailable [phone] Reason For Referral No Information Plan Of Treatment No Information
== END 2025-11-06 15:17 | disposition home or self-care (01) ==
PROVIDERS: Visit Provider Physician Assistant Medical
DX: K04.7 Periapical abscess without sinus (principal)

== ENCOUNTER → 2025-11-06 13:49 | Outpatient (BNVA) | payer OTHER, SELFPAY | PROVIDERS: Visit Provider Physician Assistant Medical | DX: K04.7 Periapical abscess without sinus (principal) | CPT/HCPCS: 99212 ==